=== PATIENT | female | born 1960 | race Caucasian/White ===

== ENCOUNTER → 2021-04-17 | Outpatient (CLI) | payer OTHER ==
--- NOTE | 2021-04-17 13:36 | 2DMMODE ---
[facility] [place] [address] 2 D/M-MODE ECHOCARDIOGRAM Name: RAZIA VIRGEN Room #: [id number] Admission: 04/17/21 Attend Phys: BURAK Tellez Discharge: Date of : 62 Report #: [id number] THIS REPORT FOR: cc: LELA ALLEN APRN Physician not on staff Antoni Selby MD [facility] ~ APPROVED REPORT Study performed: 04/17/2021 11:29:19 EXAM: Comprehensive 2D, Doppler, and color-flow Echocardiogram Patient Location: Out-Patient Room #: 2 Status: routine BSA: 1.79 HR: 80 bpm BP: 142/78 mmHg Rhythm: NSR Other Information Study Quality: Good Indications Mitral Valve Disease 2D Dimensions RVDd: 34.14 mm IVSd: 8.81 (7-11mm) LVOT Diam: 18.45 (18-24mm) LVDd: 44.73 mm PWd: 8.13 (7-11mm) Ascending Ao: 26.17 (22-36mm) LVDs: 25.35 (25-40mm) Left Atrium: 29.74 (27-40mm) Aortic Root: 28.89 mm IVC: 10.00 mm Volumes Left Atrial Volume (Systole) Single Plane 4CH: 37.27 mL Single Plane 2CH: 26.22 mL LA ESV Index: 20.00 mL/m2 Aortic Valve AoV Peak Ever[place].: 1.15 m/s AO Peak Gr.: 5.31 mmHg LVOT Max P.89 mmHg LVOT Max V: 0.99 m/s SANDOVAL Vmax: 2.29 cm2 [facility] [address] [place] [address] 2 D/M-MODE ECHOCARDIOGRAM Name: RAZIA VIRGEN Room #: REG [facility]#: [id number] Admission: 04/17/21 Attend Phys: Beatriz Lieberman, Discharge: Date of : 62 Report #: [id number] Mitral Valve E/A Ratio: 1.3 MV Decel. Time: 180.11 ms MV E Max Everton.: 1.00 m/s MV A Everton.: 0.78 m/s MV PHT: 52.23 ms IVRT: 115.34 ms Pulmonary Valve PV Peak Everton.: 0.71 m/s PV Peak Gr.: 1.99 mmHg Pulmonary Vein P Vein S: 0.70 m/s P Vein A: 0.25 m/s P Vein D: 0.43 m/s P Vein A Dur.: 96.9 msec P Vein S/D Ratio: 1.63 Tricuspid Valve TR Peak Everton.: 2.63 m/s TR Peak Gr.: 27.67 mmHg PA Pressure: 33.00 mmHg Left Ventricle The left ventricle is normal size. There is normal LV segmental wall motion. There is normal left ventricular wall thickness. The left ventricular systolic function is normal. The left ventricular ejection fraction is within the normal range. LVEF is 60-65%. The left ventricular diastolic function is normal. Right Ventricle The right ventricle is normal size. The right ventricular systolic function is normal. Atria The left atrium size is normal. The right atrium size is normal. Aortic Valve The aortic valve is normal in structure. No aortic regurgitation is present. There is no aortic valvular stenosis. Mitral Valve Mitral valve leaflets are mildly thickened. Mild mitral regurgitation. No evidence of mitral valve stenosis. Tricuspid Valve [facility] [address] [place] [address] 2 D/M-MODE ECHOCARDIOGRAM Name: RAZIA VIRGEN Room #: REG [facility]#: [id number] Admission: 04/17/21 Attend Phys: Beatriz Lieberman, Discharge: Date of : 62 Report #: [id number] The tricuspid valve is normal in structure. There is mild tricuspid regurgitation. Estimated PAP 35 mmHg. Pulmonic Valve The pulmonary valve is normal in structure. There is no pulmonic valvular regurgitation. Great Vessels The aortic root is normal in size. IVC is normal in size and collapses >50% with inspiration. Pericardium There is no pericardial effusion. <Conclusion> The left ventricular systolic function is normal. There is normal LV segmental wall motion. LVEF is 60-65%. The aortic valve is normal in structure. No aortic regurgitation or stenosis Mitral valve leaflets are mildly thickened. Mild mitral regurgitation. There is mild tricuspid regurgitation. Estimated pulmonary artery pressure of 35 mmHg. There is no pericardial effusion. <ELECTRONICALLY SIGNED> By: Antoni Selby MD, FACC 04/17/21 1336 1336 1336 Antoni Selby MD, FACC /INF
--- NOTE | 2021-04-17 13:59 | TST ---
[facility] [place] [address] TREADMILL STRESS TEST Name: RAZIA VIRGEN [facility]: [facility] [id number] Admission: 04/17/21 Attend Phys: BURAK Tellez Discharge: Date of : 62 Report #: [id number] THIS REPORT FOR: cc: LELA ALLEN APRN Physician not on staff Antoni Selby MD [facility] ~ APPROVED REPORT Patient Location: Out-Patient Room #: 2 Stress Nurse: Alivia Reddy RN The patient exercised according to the ASHWIN protocol for 7 mins; achieving a work level of 10.1 METS. The resting heart rate of 80 bpm lilliam to a maximum heart rate of 162 bpm. This value represent 100% of the maximal, age-predicted heart rate. The resting blood pressure of 142/78 mmHg, lilliam to a maximum blood pressure of 200/98 mmHg. The exercise test was stopped due to maximal effort. EKG: Sinus rhythm (limb lead reversal). No dysrhythmias. No diagnostic ischemic electrocardiographic changes. Conclusion 1. Maximal treadmill exercise study negative for exercise-induced myocardial ischemia. 2. No subjective signs of ischemia such as chest pain or anginal-like symptoms. No ischemic electrocardiographic changes. 3. The study was associated with good exercise capacity (10.1 METS). Low [place] treadmill exercise score. <ELECTRONICALLY SIGNED> By: Antoni Selby MD, FACC 04/17/21 1358 1358 1358 Antoni Selby MD, FACC /INF
== END ==
LOC: CV 10:49
PROVIDERS: ATTEND Nurse Practitioner
DX: I08.1 Rheumatic disorders of both mitral and tricuspid valves (principal); R07.9 Chest pain, unspecified